=== PATIENT | female | born 1995 | race Caucasian/White ===

== ENCOUNTER 2018-02-16 17:03 | Emergency (ER) | payer SELFPAY ==
[2018-02-16 17:36] VITALS: BMI 15.5
[2018-02-16] MEDS ORDERED: Lidocaine 5% Patch TD STA (17:51)
--- NOTE | 2018-02-16 18:31 | C.PDOC ---
History Of Present Illness 22-year-old female, presents to the emergency department with multiple complaints. Patient states she has been experiencing two day duration of throat pain, which hurts when she swallows and notes pain to B/L ears. patient reports an episode of chills last night but denies fever. Secondary complaint is low back pain, attributed to lifting 60lb boxes while at work. Patient states she is taking Ibuprofen at home with minimal relief. Associated symptoms include urinary frequency. Denies any nausea/vomiting, or any other associated symptoms. No other complaints at this time. Time Seen by Provider: 02/16/18 17:50 Chief Complaint (Nursing): Back Pain History Per: Patient History/Exam Limitations: no limitations Current Symptoms Are (Timing): Still Present Past Medical History Reviewed: Historical Data, Nursing Documentation, Vital Signs Vital Signs: Last Vital Signs Temp 102 F H 02/16/18 17:36 Pulse 121 H 02/16/18 17:36 Resp 20 02/16/18 17:36 BP 125/74 02/16/18 17:36 Pulse Ox 100 02/16/18 18:33 Family History: States: No Known Family Hx - Social History Hx Tobacco Use: No Hx Alcohol Use: No Hx Substance Use: No - Immunization History Hx Tetanus Toxoid Vaccination: No Hx Influenza Vaccination: No Hx Pneumococcal Vaccination: No Review Of Systems Constitutional: Positive for: Chills ENT: Positive for: Throat Pain Cardiovascular: Negative for: Chest Pain Gastrointestinal: Negative for: Vomiting, Abdominal Pain Genitourinary: Positive for: Frequency. Negative for: Dysuria, Vaginal Discharge Musculoskeletal: Positive for: Back Pain Neurological: Negative for: Weakness Physical Exam - Physical Exam Appears: Non-toxic, No Acute Distress Skin: Normal Color, Warm, Dry, No Rash Head: Normacephalic Eye(s): bilateral: PERRL Nose: Normal Oral Mucosa: Moist Lips: Normal Appearing Throat: Erythema, No Exudate Neck: Normal ROM, Supple Chest: Symmetrical Cardiovascular: Rhythm Regular, No Murmur Respiratory: Normal Breath Sounds, No Accessory Muscle Use Gastrointestinal/Abdominal: Soft, No Tenderness Back: Paraspinal Tenderness (lumbar) Extremity: Normal ROM, No Deformity, No Swelling Neurological/Psych: Oriented x3, Normal Speech ED Course And Treatment O2 Sat by Pulse Oximetry: 100 Medical Decision Making Medical Decision Making: Plan: * Amoxicillin, Lidoderm, Tylenol * UA UA shows WBC and LE, will treat since patient is symptomatic. On re-eval, patient reports improvement of symptoms. Patient feels comfortable going home and will be discharged. Patient stable for discharge and given Rx. Patient given follow up instructions. Instructed to return to ER if symptoms worsen or new symptoms arise. Disposition Counseled Patient/Family Regarding: Diagnosis, Need For Followup, Rx Given - Disposition Referrals: [facility] [Outside] [facility] [Outside] Disposition: HOME/ ROUTINE Disposition Time: 18:46 Condition: STABLE Additional Instructions: Take antibiotic twice daily and be sure to finish taking all of antibiotic Apply heat to area for 15-20 minutes at a time 2-3 times per day Take Motrin for pain every 6-8 hours as needed, with food to not upset stomach Take Flexeril for muscle pain and spasm every 6-8 hours as needed, caution can cause drowsiness Follow up with your primary medical doctor or clinic in 2-5 days for further evaluation Return to the emergency department at any time if symptoms persist or worsen. [place] antibiticos dos veces al da y asegrese de terminar de gayle todos los antibiticos Aplicar calor en el cecile khadar 15-20 minutos a la vez 2-3 veces por da [place] Motrin para el dolor cada 6-8 horas segn sea necesario, con alimentos para no molestar el estmago [place] Flexeril para el dolor muscular y espasmo cada 6-8 horas segn sea necesario, la precaucin puede causar somnolencia Cherise un seguimiento con [place] mdico primario o clnica en 2-5 romero para ariel evaluacin adicional Regrese al departamento de emergencia en cualquier momento si los sntomas persisten o empeoran. Prescriptions: Amoxicillin [Amoxil 500 mg Cap] 500 mg PO BID #20 cap Cyclobenzaprine [Cyclobenzaprine HCl] 10 mg PO TID #21 tab Ibuprofen [Motrin] 600 mg PO Q8 #30 tab Sulfamethoxazole/Trimethoprim [Bactrim DS 800 mg-160 mg] 1 tab PO BID #10 tab Instructions: Sore Throat, Adult (DC), Lumbar Muscle Strain (DC) Forms: [employer] (Tajik) Print Language: [place] - POA Present On Arrival: None - Clinical Impression Clinical Impression: Low back strain, Pharyngitis - Scribe Statement The provider has reviewed the documentation as recorded by the Scribe (Dinora Montanez) All medical record entries made by the Scribe were at my direction and personally dictated by me. I have reviewed the chart and agree that the record accurately reflects my personal performance of the history, physical exam, medical decision making, and the department course for this patient. I have also personally directed, reviewed, and agree with the discharge instructions and disposition.
[2018-02-16] MEDS ORDERED: Lidocaine 5% Patch TD ONE (18:47)
[2018-02-16 18:49] LABS: SQUAMOUS EPITHIAL 8 /hpf (0-5); URINE BACTERIA OCC (<OCC); URINE BILIRUBIN NEGATIVE (NEGATIVE); URINE BLOOD NEGATIVE (NEGATIVE); URINE CLARITY Hazy (Clear); URINE COLOR Yellow (YELLOW); URINE GLUCOSE (UA) NORMAL (Normal); URINE LEUKOCYTE ESTERASE 3+ Leu/uL (Negative); URINE PROTEIN NEGATIVE (NEGATIVE)
[2018-02-16] MEDS ORDERED: Sodium Chloride 0.9% 1,000 ML IV ONE (19:38)
[2018-02-16] MEDS ORDERED: Sodium Chloride 0.9% 1,000 ML ONE (19:45)
[2018-02-16 20:11] LABS: BASO % 0.1 % (0.0-2.0); EOS % 0.3 % (0.0-4.0); HEMOGLOBIN 11.2 g/dL (11.0-16.0); LYMPH # 0.8 K/uL (1.0-4.3); LYMPH % 5.8 % (20.0-40.0); MEAN CORPUSCULAR HEMOGLOBIN 29.2 pg (27.0-31.0); MEAN PLATELET VOLUME 8.4 fL (7.2-11.7); MONO # 0.9 K/uL (0.0-0.8); NEUT # 11.6 K/uL (1.8-7.0); NEUT % 86.8 % (50.0-75.0); PLATELET COUNT 165 K/uL (130-400); RBC 3.85 Mil/uL (3.80-5.20); RED CELL DISTRIBUTION WIDTH 15.3 % (11.5-14.5); WHITE BLOOD COUNT 13.4 K/uL (4.8-10.8)
[2018-02-16 20:29] LABS: ALB/GLOB RATIO 1.1 (1.0-2.1); ALT/SGPT 16 U/L (9-52); AST/SGOT 23 U/L (14-36); BLOOD UREA NITROGEN 10 mg/dL (7-17); CALCIUM 8.6 mg/dl (8.6-10.4); GFR AFRICAN-AMERICAN > 60; GFR NON-AFRICAN AMERICAN > 60
[2018-02-16 21:18] LABS: BANDS 2 % (0-2); EOSINOPHIL 1 % (0-4); LYMPHOCYTE 4 % (20-40); MONOCYTE 2 % (0-10); NEUTROPHIL 91 % (50-75); PLATELET ESTIMATE NORMAL (NORMAL); TOTAL CELLS COUNTED 100
[2018-02-16 21:19] LABS: ANISOCYTOSIS SLIGHT
[2018-02-16 21:36] VITALS: BP 95/58; PULSE 100; RESP 16; TEMP 98.9; O2SAT 98
== END 2018-02-16 21:50 | disposition home or self-care (01) ==
LOC: C.ER 17:03
DX: J02.9 Acute pharyngitis, unspecified (principal); S39.012A Strain of muscle, fascia and tendon of lower back, initial encounter; X50.0XXA Overexertion from strenuous movement or load, initial encounter; Y92.89 Other specified places as the place of occurrence of the external cause; Y99.0 Civilian activity done for income or pay
CPT/HCPCS: 80053; 81001; 85025; 96361; 96374; 99285; J1885; J7040